=== PATIENT | female | born 1985 | race Caucasian/White ===

== ENCOUNTER 2016-05-15 18:02 | Observation (INO) | payer OTHER ==
[~2016-05-15] VITALS: Ht 157.5 cm; Wt 75.7 kg
[2016-05-17] MEDS ORDERED: LYRICA200 MG PO (19:25)
[2016-05-17] MEDS ORDERED: ELAVIL-DPS50 MG PO (19:26)
[2016-05-17] MEDS ORDERED: VITAMIN D-32000 UNI1 (19:26)
[2016-05-17] MEDS ORDERED: BACLOFEN10 MG PO (19:26)
[2016-05-17] MEDS ORDERED: MAGNESIUM250 M1 PO (19:26)
[2016-05-17] MEDS ORDERED: NAPROSYN DPS500 MG PO (19:27)
[2016-05-17] MEDS ORDERED: TYLENOL DPS325 MG PO (19:28)
[2016-05-17] MEDS ORDERED: IMITREX25 MG PO (19:28)
--- NOTE | 2016-05-22 11:36 | HP ---
ADMIT: 05/15/2016 RM/LOC: 402 [facility] MR#: [id number] [address] [address] FISH AGUILERA Jojo [birth year] [place] [address] History and Physical SEX: F AGE: 30 : 1985 DATE OF SERVICE: CHIEF COMPLAINT AND HISTORY OF THE PRESENT ILLNESS: This 30-year-old female is being admitted for increasing dyspnea, cough, chest pains, abdominal pain, and abnormal liver function tests. The patient has been sick for approximately one week. She was seen in the office two days ago. At that time, she complained of cough, particularly pain in the right chest with a deep breath. Her pains were much worse with a deep breath and her white count was normal, but she did have a relative lymphocytosis. I had thought that she had probably pleurisy. Her oxygen level was 98 on room air at that time. The patient was given ibuprofen and has returned to the clinic today. The patient is feeling worse. Again, she has marked dyspnea, she tries to take any kind of a breath and she coughs and is unable to take a deep breath because of the pain. There has been no hemoptysis. There is tachycardia, and she now complains of pain in the lower abdomen, particularly in the right lower quadrant. She has had now lot of pain in the right upper quadrant, but it is very slightly tender, and she does have a right chest pain especially with a deep breath. PREVIOUS MEDICAL HISTORY: Generally, her health has been good. Past problems include migraine headache and myofascial muscle syndrome. MEDICATIONS: 1. Lyrica. 2. Baclofen. 3. Amitriptyline. 4. Sumatriptan. 5. She has taken occasional Naprosyn and vitamin D. SOCIAL HISTORY: The patient has never smoked. She is single. She works in an office, and takes an occasional drink of alcohol. FAMILY HISTORY: REVIEW OF SYSTEMS: HEENT: The patient had myofascial syndrome and also history of some migraine headaches. CARDIOPULMONARY: There are no myocardial infarctions or chest pains. She has never smoked. No history of pleurisy, pneumonia, hemoptysis, or hypertension. GI: No nausea, vomiting, constipation, bloody stools, or diarrhea. : No hematuria or dysuria. METABOLIC/ENDOCRINE: No history of diabetes or thyroid disease. MUSCULOSKELETAL: No significant history. PHYSICAL EXAMINATION: VITAL SIGNS: Temperature 99.9 degrees, pulse 108 and regular, respirations 24, pulse oximetry is 97 on room air. The patient rates her pain at 9/10. Weight 167 pounds. BMI is 29. GENERAL: The patient is alert, cooperative, but she is quite uncomfortable. HEENT: Head - normocephalic without exostoses. STEPH. Throat within normal limits. ADMIT: 05/15/2016 RM/LOC: 402 [facility] MR#: [id number] [address] [place] [id number] [facility] [address] [place] [id number] History and Physical SEX: F AGE: 30 : 1985 NECK: Neck veins not distended. Thyroid not enlarged. CHEST: She has occasional rales. No wheezes are heard. When she starts to take a deep breath, she stops suddenly and groans with pain. HEART: There is tachycardia present. No murmur is heard. No pericardial or pleural friction rubs are heard. ABDOMEN: Soft. The livers does not appear to be enlarged, but she is tender particularly in the right lower quadrant, also slightly in the right upper quadrant. GENITALIA: Normal. EXTREMITIES: No cyanosis, clubbing or edema. ASSESSMENT: 1. Nausea with intermittent vomiting. 2. Abnormal liver function tests. 3. Chest pains of unknown etiology. 4. History of myofascial syndrome. PLAN: Kelvin Almaguer MD/ jazmin JOB #: [id number] CC: Kelvin Almaguer, Attending Physician Kelvin Almaguer, Family Physician
--- NOTE | 2016-05-22 11:36 | DS ---
ADMIT: 05/15/2016 RM/LOC: 402 [facility] MR#: [id number] [address] [address] FISH AGUILERA [birth year] [place] [address] Discharge Summary SEX: F AGE: 30 : 1985 ADMISSION DATE: 05/15/2016 DISCHARGE DATE: 05/16/2016 HISTORY AND PHYSICAL: Please see the chart. LABORATORY AND X-RAY DATA: Please see the chart. CLINICAL COURSE: This 30-year-old female was admitted with dyspnea and tachypnea, abdominal pains, abnormal liver function tests. I was concerned about the possibility of pulmonary emboli, and initially she was admitted. Dr. Gardner saw the patient in consultation. It was felt there were no surgical problems initially. CT scan of the chest showed no evidence of pulmonary emboli, and the blood gases were consistent with hyperventilation. There was no metabolic acidosis present. The patient did well. On the next morning, the patient was feeling somewhat better. Her liver tests were still quite abnormal. Follow-up blood count still showed a normal white count. Her hemoglobin was reasonable at 12.9, and the patient will be discharged home. DISCHARGE MEDICATIONS: She will continue her home medications of: 1. Baclofen. 2. Lyrica. 3. Amitriptyline. 4. Vitamin D. 5. Magnesium. 6. Naprosyn 500 mg p.r.n. pain. 7. Sumatriptan p.r.n. migraine headache. 8. Tylenol p.r.n. She will be seen in the clinic in one week. Her hepatitis panels are pending. FINAL DIAGNOSES: 1. Abnormal liver function tests. 2. Tachypnea. 3. Probable viral syndrome with relative lymphocytosis. 4. History of migraine headaches. Kelvin Almaguer MD/ tania JOB #: [id number] CC: Kelvin Almaguer MD, Attending Physician Kelvin Almaguer MD, Family Physician
--- NOTE | 2016-06-12 10:44 | CO ---
ADMIT: 05/15/2016 RM/LOC: [address] [facility] MR#: [id number] [address] [address] FISH AGUILERA Jojo [birth year] [place] [address] Consultation SEX: F AGE: 30 : 1985 DATE OF CONSULTATION: 05/15/2016 ATTENDING PHYSICIAN: Kelvin Almaguer CONSULTING PHYSICIAN: Saad Gardner MD CHIEF COMPLAINT: Shortness of breath and cough as well as mild abdominal pain. HISTORY OF PRESENT ILLNESS: This is a 30-year-old female patient of Dr. Almaguer whom I was asked to see in surgical consultation. She says that on Friday, she started feeling short of breath, having a cough that kind of subsided overnight, but then Friday morning, she started having troubles again, so she was seen by Dr. Almaguer in the clinic. Her labs are okay other than her lymphocytes on the differential were somewhat elevated, so she was just treated with ibuprofen, which he says she did not really tolerate very well, and so she did not really take that much. She came back to see Dr. Almaguer today, so 2 days later after her initial visit and she is complaining of more shortness of breath, having difficulty even catching her breath. She feels like when she lays down, she is choking. She basically is sitting upright in bed breathing pretty rapidly, but she is able to talk without any dyspnea when just discussing her history with her. She feels hungry. She says she is actually starving right now. She just had a clear liquid tray of food. Her bowel movements have been fine. She has not been vomiting at all. She does have some mild lower abdominal pain. Some pain up in her right shoulder. She does not really feel bloated at all. She had repeat labs done in Dr. Almaguer's office today which again were all normal other than elevated lymphocytes on her differential. So, she was admitted to the floor. A CT scan of the chest, abdomen, and pelvis were ordered, which unfortunately have not yet been done after her being here for about 3 hours at this point. Her sedimentation rate is slightly elevated at 23 with the upper limit of normal being 20. PAST MEDICAL HISTORY: Illnesses: She has some underlying pain issues. CURRENT MEDICATIONS: She has been takin. Lyrica. 2. Amitriptyline. 3. Baclofen. 4. Vitamin D. 5. Magnesium. 6. Naprosyn. 7. Sumatriptan. 8. Tylenol. ALLERGIES: NONE. PREVIOUS SURGERIES: She denies any abdominal surgeries. ADMIT: 05/15/2016 RM/LOC: [address] [facility] MR#: [id number] [address] [address] [place] [address] [birth year] [place] [id number] Consultation SEX: F AGE: 30 : 1985 SOCIAL HISTORY: I do not believe she smokes or drinks. FAMILY HISTORY: Noncontributory. REVIEW OF SYSTEMS: A 10-point review of systems is essentially negative with exception of her current shortness of breath, tachypnea, cough, feeling of "choking" when she leans back, and some mild right lower quadrant abdominal pain. Also, pain up in her right shoulder. PHYSICAL EXAMINATION: GENERAL: She is again tachypneic. She is sitting upright in bed. She does not necessarily appear in any acute distress, but she is obviously uncomfortable. HEENT: Normal. No adenopathy. LUNGS: Diminished in the bases bilaterally. HEART: Regular. ABDOMEN: Obese. It is soft. It is essentially at this point nontender throughout. No mass or organomegaly are appreciated. No peritoneal signs. EXTREMITIES: Warm and pink without edema. LABORATORY DATA: Her labs again were all done at Dr. Almaguer's office with the exception of sedimentation rate which is a 23. It does not look like her labs from his office made it onto her chart, so I do not have those at this time. ASSESSMENT: 1. Tachypnea. 2. Shortness of breath. 3. Some mild lower abdominal pain. PLAN: She needs to get a CT scan of the chest, abdomen, and pelvis, which we were going to try to get that done. Based on her exam, I am not convinced that she has a surgical abdomen. She is hungry. She has really no pain in her belly at this time, but again I think the CT scan will help delineate is what actually going on. Saad Gardner MD/ jazmin JOB #: [id number] CC: Kelvin Almaguer, Attending Physician Kelvin Almaguer, Family Physician
== END 2016-05-16 14:38 | disposition home or self-care (01) ==
LOC: 4PCU 18:02
DX: R06.82 Tachypnea, not elsewhere classified (principal); R79.89 Other specified abnormal findings of blood chemistry; R07.9 Chest pain, unspecified; G43.909 Migraine, unspecified, not intractable, without status migrainosus; M79.1 Myalgia